=== PATIENT | male | born 1990 | race Two or more races ===

== ENCOUNTER 2021-05-16 13:24 | Emergency (ER) | payer OTHER ==
[~2021-05-16] VITALS: Ht 162.6 cm; Wt 90.7 kg
--- NOTE | 2021-05-16 13:35 | NUR ---
TO ER BED 6, C/O HEAD LAC S/P TOOL BOX FELL ON HIS HEAD, -LOC, AAOX4, BREATHING EVEN AND NON LABORED
[2021-05-16] MEDS ORDERED: BACITRACIN ZINC OINT PACKET 1 EA PACKET TP ONE (14:00)
[2021-05-16] MEDS ORDERED: LIDOCAINE 1% INJ 50 ML MDV IJ ONE (14:00)
[2021-05-16] MEDS ORDERED: LIDOCAINE HCL/PF 1% 30 ML SDV ONE ×2 (14:32→14:33)
[2021-05-16] MEDS ORDERED: KETOROLAC TROMETHAMINE 15 MG/ML VIAL ONE (14:57)
[2021-05-16] MEDS ORDERED: IBUP-1955 PO (14:58)
[2021-05-16] MEDS ORDERED: KETOROLAC TROMETHAMINE INJ 30 MG/ML VIAL IM ONE (15:00)
--- NOTE | 2021-05-16 16:05 | NUR ---
Patient discharged to home in stable condition. Written and verbal after care instructions given. Patient verbalizes understanding of instruction.
[2021-05-16 16:20] VITALS: BP 124/91
== END 2021-05-16 16:21 | disposition home or self-care (01) ==
LOC: ER 13:24
DX: S01.01XA Laceration without foreign body of scalp, initial encounter (principal); W20.8XXA Other cause of strike by thrown, projected or falling object, initial encounter; Y93.89 Activity, other specified; Y92.89 Other specified places as the place of occurrence of the external cause; Y99.8 Other external cause status
CPT/HCPCS: 12001; 96372; 99283; A6403; J1885; J3490 ×2